=== PATIENT | female | born 1935 | race Caucasian/White ===

== ENCOUNTER 2016-08-19 10:03 | Emergency (ER) | payer OTHER ==
[~2016-08-19] VITALS: Ht 152.4 cm; Wt 49.8 kg
[~2016-08-19 10:03] MED LIST: AMLODIPINE BESY10 MG PO; AMLODIPINE BESYL5 MG PO; AMOXIL875 MG PO; ASPIR-TRIN325 M1 PO; AUGMENTIN875 MG PO; BETAMETHASONE V15 GM TP; CITALOPRAM HBR10 MG PO; CO Q-10200 MG PO; COATED ASPIRIN325 MG PO; CRESTOR20 MG PO; CRESTOR40 MG PO; FERROUS SULFAT325 MG PO; GABAPENTIN100 MG PO; HYDROCODON-ACE1 EAC7 PO; Habitrol,Nicoderm CQ TD; IRON18 MG PO; IRON325 MG PO; K-Dur PO; LEXAPRO10 MG; LEXAPRO10 MG PO; LIQUID B-11000 MCG/1 PO; LO-DOSE ASPIRIN81 M1 PO; MEDROL DOSEPAK4 MG PO; METOPROLOL SUCC25 MG PO; METOPROLOL SUCC50 MG PO; NEXIUM40 MG PO; NORVASC5 MG PO; Norvasc PO; OCUVITE TABLET1 EACH PO; PLAVIX75 MG PO; PREDNISONE20 MG PO; PROTONIX40 MG PO; SYNTHROID100 MCG PO; SYNTHROID75 MCG PO; TRAMADOL HCL50 MG PO; TYLENOL EXTRA500 MG PO; Toprol XL PO; VITAMIN D31000 UNIT PO; Vitamin B-12 PO; ZITHROMAX Z-PA250 MG PO
[2016-08-19 11:20] LABS: HEMATOCRIT 42.7 % (36.0-46.0); MCH 33.7 PG (29.0-34.0); MCHC 34.7 G/DL (30.0-36.0); MCV 97.3 FL (83-99); MEAN PLAT.VOLUME 9.6 uM^3 (9.5-12.4); PLATELET COUNT 132 K/uL (156-360); RBC DIS.WIDTH-CV 13.1 % (11.8-14.6); RBC DIS.WIDTH-SD 45.1 % (39-53); RED BLOOD COUNT 4.39 M/uL (3.80-5.20); WHITE BLOOD COUNT 7.2 K/uL (4.1-10.2)
[2016-08-19 11:25] LABS: CHLORIDE 105 mEq/L (99-109); POTASSIUM 4.4 mEq/L (3.7-5.4); SODIUM 141 mEq/L (136-147)
[2016-08-19 11:27] LABS: GLUCOSE 127 mg/dL (70-99)
[2016-08-19 11:28] LABS: ANION GAP 9 MEQ/L (2-14)
[2016-08-19 11:31] LABS: GFR ESTIMATE (CALCULATED) > 59 mL/min/
[2016-08-19 11:32] LABS: UREA NITROGEN (BUN) 12 mg/dL (9-23)
[2016-08-19 11:37] LABS: TROP-I INTERPRETATION NEGATIVE; TROPONIN-I 0.01 ng/mL (0.0-0.30)
[2016-08-19 12:13] LABS: ADD MIUA? NO; BILIRUBIN NEGATIVE; BLOOD NEGATIVE; COLOR YELLOW ((YELLOW)); GLUCOSE (STRIP) NEGATIVE; KETONES NEGATIVE; LEUKOCYTES NEGATIVE; NITRITE NEGATIVE; PROTEIN (STRIP) NEGATIVE; SPECIFIC GRAVITY 1.013 (1.000-1.030); UROBILINOGEN 0.2 MG/DL (0.2-1.0)
[2016-08-19] MEDS ORDERED: VENTOLIN HFA18 GM IH (12:21)
[2016-08-19] MEDS ORDERED: LEVAQUIN750 MG PO (12:21)
[2016-08-19 12:42] VITALS: BP 172/57
== END 2016-08-19 12:43 | disposition home or self-care (01) ==
LOC: EME 10:03
PROVIDERS: Nurse Practitioner Family
DX: J40 Bronchitis, not specified as acute or chronic (principal); J43.9 Emphysema, unspecified; J44.9 Chronic obstructive pulmonary disease, unspecified; I10 Essential (primary) hypertension; E03.9 Hypothyroidism, unspecified; F17.200 Nicotine dependence, unspecified, uncomplicated; Z79.82 Long term (current) use of aspirin; Z88.7 Allergy status to serum and vaccine; Z88.8 Allergy status to other drugs, medicaments and biological substances
CPT/HCPCS: 71020; 80048; 81003; 84484; 85027; 93005; 99281; 99284; J7644

== ENCOUNTER 2017-02-19 12:27 | Emergency (ER) | payer OTHER ==
[~2017-02-19] VITALS: Ht 154.9 cm; Wt 48.3 kg
[~2017-02-19 12:27] MED LIST changes: +LEVAQUIN750 MG PO; +VENTOLIN HFA18 GM IH
[2017-02-19] MEDS ORDERED: KEFLEX500 MG PO (13:40)
[2017-02-19 13:54] VITALS: BP 110/98
== END 2017-02-19 13:55 | disposition home or self-care (01) ==
LOC: EME 12:27 → RME 12:27
DX: S90.02XA Contusion of left ankle, initial encounter (principal); W22.8XXA Striking against or struck by other objects, initial encounter; L03.116 Cellulitis of left lower limb; G89.29 Other chronic pain; M54.9 Dorsalgia, unspecified; M85.872 Other specified disorders of bone density and structure, left ankle and foot; I10 Essential (primary) hypertension; Z79.02 Long term (current) use of antithrombotics/antiplatelets; Z79.82 Long term (current) use of aspirin; F17.200 Nicotine dependence, unspecified, uncomplicated
CPT/HCPCS: 73610; 99281; 99283

== ENCOUNTER 2017-08-07 12:11 | Inpatient (IN) | payer OTHER ==
[~2017-08-07] VITALS: Ht 152.4 cm; Wt 49.3 kg
[~2017-08-07 12:11] MED LIST changes: -CRESTOR20 MG PO; +KEFLEX500 MG PO
[2017-08-07 13:00] LABS: BICARBONATE 22.4 mEq/L (22-26); CARBOXY HGB 1.5 % (0-5); METHEMOGLOBIN 1.2 % (0-1.5); PCO2 33 mm Hg (35-45); PO2 66 mm Hg (80-100); pH 7.44 (7.35-7.45)
[2017-08-07 13:01] LABS: COMMENTS - BLOOD GASES NAC+; CONTINUOUS POS AIRWAY PRESSURE 5 cm H2O; DEVICE 980 NIV VENT; FI02 21 %; MODE SPONT; PRES. SUPPORT 10 CM/H2O; SITE RR; TOTAL RESP RATE 9 resp/min
[2017-08-07 13:16] LABS: HEMATOCRIT 44.8 % (36.0-46.0); MCH 33.3 PG (29.0-34.0); MCHC 33.5 G/DL (30.0-36.0); MCV 99.3 FL (83-99); PLATELET COUNT 162 K/uL (156-360); RBC DIS.WIDTH-CV 13.2 % (11.8-14.6); RBC DIS.WIDTH-SD 49.2 % (39-53); RED BLOOD COUNT 4.51 M/uL (3.80-5.20); WHITE BLOOD COUNT 12.8 K/uL (4.1-10.2)
[2017-08-07 13:22] LABS: ALBUMIN 4.2 g/dL (3.2-4.8); CHLORIDE 106 mEq/L (99-109); POTASSIUM 3.4 mEq/L (3.7-5.4); SODIUM 140 mEq/L (136-147)
[2017-08-07 13:24] LABS: GLUCOSE 168 mg/dL (70-99); TOTAL PROTEIN 6.9 g/dL (6.4-8.3)
[2017-08-07 13:26] LABS: TOTAL BILIRUBIN 0.3 mg/dL (0.0-1.0)
[2017-08-07 13:28] LABS: ALKALINE PHOSPHATASE 69 IU/L (3-129); CREATININE 0.8 mg/dL (0.6-1.3); GFR ESTIMATE (CALCULATED) > 59 mL/min/
[2017-08-07 13:29] LABS: UREA NITROGEN (BUN) 13 mg/dL (9-23)
[2017-08-07 13:30] LABS: AST (GOT) 13 IU/L (2-34)
[2017-08-07 13:31] LABS: ALT (GPT) 18 IU/L (3-49)
[2017-08-07 13:34] LABS: TROP-I INTERPRETATION NEGATIVE; TROPONIN-I 0.04 ng/mL (0.0-0.30)
[2017-08-07] MEDS ORDERED: PREDNISONE20 MG PO (17:18)
[2017-08-07] MEDS ORDERED: GABAPENTIN100 MG PO (17:18)
[2017-08-07] MEDS ORDERED: ALBUTEROL2.5 MG/3 M IH (17:19)
[2017-08-07] MEDS ORDERED: CO Q-10100 MG PO (17:20)
[2017-08-07] MEDS ORDERED: POTASSIUM-9999 MG PO (17:20)
[2017-08-07] MEDS ORDERED: COQ-10100 MG PO (17:21)
[2017-08-07 17:50] VITALS: BP 196/77
[2017-08-07 18:03] LABS: THYROTROPIN (TSH) 0.25 MIU/L (0.4-5.5)
[2017-08-07 20:08] VITALS: BP 149/65
[2017-08-08] VITALS (8 sets, daily range): BP systolic 133–197; BP diastolic 61–88
[2017-08-08 06:31] LABS: HEMATOCRIT 40.6 % (36.0-46.0); HEMOGLOBIN 13.4 G/DL (11.9-15.5); MCH 33.3 PG (29.0-34.0); MCV 100.7 FL (83-99); PLATELET COUNT 133 K/uL (156-360); RBC DIS.WIDTH-CV 13.5 % (11.8-14.6); RBC DIS.WIDTH-SD 50.3 % (39-53); RED BLOOD COUNT 4.03 M/uL (3.80-5.20); WHITE BLOOD COUNT 10.1 K/uL (4.1-10.2)
[2017-08-08 06:56] LABS: CHLORIDE 107 MEQ/L (99-109); CREATININE 0.7 MG/DL (0.6-1.3); GFR ESTIMATE (CALCULATED) > 59 mL/min/; GLUCOSE 195 mg/dL (70-99); POTASSIUM 3.4 MEQ/L (3.7-5.4); SODIUM 138 MEQ/L (136-147); UREA NITROGEN (BUN) 11 mg/dL (9-23)
[2017-08-08 08:01] LABS: MAGNESIUM 1.8 mg/dl (1.3-2.7)
[2017-08-08 11:37] LABS: APPEARANCE CLEAR ((CLEAR)); BILIRUBIN NEGATIVE; BLOOD SMALL; COLOR STRAW ((YELLOW)); GLUCOSE (STRIP) 50; KETONES NEGATIVE; LEUKOCYTES NEGATIVE; NITRITE NEGATIVE; PROTEIN (STRIP) 30; SPECIFIC GRAVITY 1.004 (1.000-1.030); UROBILINOGEN 0.2 MG/DL (0.2-1.0)
[2017-08-08 11:41] LABS: BACTERIA RARE /HPF; EPITHELIAL CELLS NONE SEEN /HPF; MUCUS TRACE /LPF; RED BLOOD CELLS 0-5 /HPF (0-5); UCUL ADDED? NO; WHITE BLOOD CELLS 0-5 /HPF (0-5)
[2017-08-09] VITALS: BP 192/78
[2017-08-09 01:05] VITALS: BP 147/67
[2017-08-09 04:10] VITALS: BP 184/75
[2017-08-09 12:10] VITALS: BP 134/60
[2017-08-09 15:33] VITALS: BP 160/67
[2017-08-09 19:59] VITALS: BP 181/72
[2017-08-10 00:15] VITALS: BP 129/58
[2017-08-10 03:38] VITALS: BP 152/67
[2017-08-10 08:12] VITALS: BP 149/65
[2017-08-10] MEDS ORDERED: PRIMIDONE50 MG PO (11:16)
[2017-08-10 12:06] VITALS: BP 147/87
[2017-08-10] MEDS ORDERED: DUONEB 2.5-0.5 M3 ML AEROSOL (14:21)
[2017-08-10] MEDS ORDERED: VENTOLIN HFA18 GM IH (14:38)
== END 2017-08-10 15:11 | disposition home health service (06) | DRG 190 ==
LOC: EME 12:11 → EDOF 16:28 → 5WEST 16:28 → CANRESERV 16:35 → ENRESERV 16:35 → 5WEST 17:40
PROVIDERS: Emergency Medicine; Internal Medicine
PROC: 5A09357 Assistance with Respiratory Ventilation, Less than 24 Consecutive Hours, Continuous Positive Airway Pressure (ICD-10-PCS; principal; 2017-08-07)
DX: J44.0 Chronic obstructive pulmonary disease with (acute) lower respiratory infection (principal); J96.01 Acute respiratory failure with hypoxia; J44.1 Chronic obstructive pulmonary disease with (acute) exacerbation; J20.9 Acute bronchitis, unspecified; I73.9 Peripheral vascular disease, unspecified; I25.10 Atherosclerotic heart disease of native coronary artery without angina pectoris; Z95.5 Presence of coronary angioplasty implant and graft; E78.5 Hyperlipidemia, unspecified; M81.0 Age-related osteoporosis without current pathological fracture; E03.9 Hypothyroidism, unspecified; G25.2 Other specified forms of tremor; E87.6 Hypokalemia; I10 Essential (primary) hypertension; I25.2 Old myocardial infarction; K21.9 Gastro-esophageal reflux disease without esophagitis; F17.200 Nicotine dependence, unspecified, uncomplicated; E87.3 Alkalosis; Z79.82 Long term (current) use of aspirin; G25.0 Essential tremor
CPT/HCPCS: 36600; 71045; 80048; 80053; 81003; 82803; 83605; 83735; 83880; 84439; 84443; 84484; 85027; 87040; 87070; 87205; 87502; 93005; 94002; 94640; 94640 76; 94799; 99202; 99281; 99285; G0378; J0360; J0456; J1650; J2930; J7030; J7644